=== PATIENT | male | born 1950 | race Caucasian/White ===

== ENCOUNTER 2016-12-02 12:06 | Emergency (ER) | payer MEDICARE, BC ==
[2016-12-02 12:20] VITALS: BP 136/82
--- NOTE | 2016-12-02 12:37 | EDM.PDOC ---
ED HPI GENERAL MEDICAL PROBLEM - General Chief Complaint: Abdominal Pain Stated Complaint: [id number] STOMACH TROUBLE FELL DOWN Time Seen by Provider: 12/02/16 12:25 Source of Information: Reports: Patient History Limitations: Reports: No Limitations - History of Present Illness INITIAL COMMENTS - FREE TEXT/NARRATIVE: This 66 yo male patient reports to the ED with a 2 day history of lower abdominal pain which got much worse after a fall today. The patient reports he was fishing on the [place] today and fell at about 1100. Since that time, the patient reports increased abdominal pain in his lower abdomen. The patient reports his pain initially started after a cough, but has not been getting any better. The patient reports he took 3 ibuprofen at about 1130 with little to no relief. The patient reports his pain is a 4/10 at this time, but is a 9/10 when he attempts to get up or move. 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 Lower Abdomen Pain Score (Numeric/FACES): 5 - Related Data Allergies Allergy/AdvReac Type Severity Reaction Status Date / Time No Known Allergies Allergy Verified 12/02/16 12:28 Home Meds: Home Meds Acetaminophen [Tylenol Extra Strength] 1,000 mg PO ASDIRECTED PRN 12/02/16 [ History] Alendronate Sodium [Fosamax] 70 mg PO WEEKLY 12/02/16 [History] Aspirin [Ecotrin] 81 mg PO DAILY 12/02/16 [History] Ca Carbonate/Vitamin D3/Vit K [Calcium + D Soft Chewable Tab] 1 each PO BID [History] Cholecalciferol (Vitamin D3) [Vitamin D3] 2 cap PO BID 12/02/16 [History] Docusate Sodium [Colace] 100 mg PO DAILY 12/02/16 [History] Enalapril [Vasotec] 10 mg PO DAILY 12/02/16 [History] Fluticasone/Salmeterol [Advair 250-50 Diskus] 2 puff IH BID 12/02/16 [History] Magnesium 250 mg PO DAILY 12/02/16 [History] Multivitamin/Iron/Folic Acid [Multi-Day Plus Iron Tablet] 1 each PO DAILY [History] NIFEdipine [Procardia XL] 30 mg PO DAILY 12/02/16 [History] Nitroglycerin [Nitrostat] 0.4 mg SL ASDIRECTED 12/02/16 [History] Pantoprazole Sodium [Protonix] 40 mg PO DAILY 12/02/16 [History] Potassium Chloride [Klor-Con 10] 10 meq PO DAILY 12/02/16 [History] Simvastatin [Zocor] 20 mg PO BEDTIME 12/02/16 [History] Past Medical History Cardiovascular History: Reports: Other (See Below) Other Cardiovascular History: "leaky valve" Respiratory History: Reports: COPD Gastrointestinal History: Reports: GERD Genitourinary History: Reports: None Musculoskeletal History: Reports: None Neurological History: Reports: None Psychiatric History: Reports: None Endocrine/Metabolic History: Reports: None Hematologic History: Reports: None Immunologic History: Reports: None Oncologic (Cancer) History: Reports: None Dermatologic History: Reports: None - Infectious Disease History Infectious Disease History: Reports: Chicken Pox - Past Surgical History Cardiovascular Surgical History: Reports: Pacer Social & Family History - Family History Family Medical History: Noncontributory - Tobacco Use Smoking Status *Q: Former Smoker Used Tobacco, but Quit: Yes Month Tobacco Last Used: 2015 - Caffeine Use Caffeine Use: Reports: Coffee - Recreational Drug Use Recreational Drug Use: No ED ROS GENERAL - Review of Systems Review Of Systems: ROS reveals no pertinent complaints other than HPI. ED EXAM, GI/ABD - Physical Exam Exam: See Below Exam Limited By: No Limitations General Appearance: Alert, WD/WN, Moderate Distress Eyes: Bilateral: Normal Appearance, EOMI Ears: Normal External Exam, Normal Canal, Hearing Grossly Normal, Normal TMs Nose: Normal Inspection, Normal Mucosa, No Blood Throat/Mouth: Normal Inspection, Normal Lips, Normal Teeth, Normal Gums, Normal Oropharynx, Normal Voice, No Airway Compromise Head: Atraumatic, Normocephalic Neck: Normal Inspection, Supple, Non-Tender, Full Range of Motion Respiratory/Chest: No Respiratory Distress, Lungs Clear, Normal Breath Sounds, No Accessory Muscle Use, Chest Non-Tender Cardiovascular: Normal Peripheral Pulses, Regular Rate, Rhythm, No Edema, No Gallop, No JVD, No Murmur, No Rub GI/Abdominal: Normal Bowel Sounds, Tenderness (lower abdomen), Guarding, Rebound , Psoas Sign (Male) Exam: Deferred Rectal (Males) Exam: Deferred Back Exam: Normal Inspection, Full Range of Motion, NT Extremities: Normal Inspection, Normal Range of Motion, Non-Tender, Normal Capillary Refill, No Pedal Edema Neurological: Alert, Oriented, CN II-XII Intact, Normal Cognition, Normal Gait, Normal Reflexes, No Motor/Sensory Deficits Psychiatric: Normal Affect, Normal Mood Skin Exam: Warm, Dry, Intact, Normal Color, No Rash Lymphatic: No Adenopathy Course - Vital Signs Last Recorded V/S: Last Vital Signs Temp 36.4 C 12/02/16 12:13 Pulse 68 12/02/16 12:13 Resp 20 12/02/16 12:13 BP 136/82 12/02/16 12:20 Pulse Ox 97 12/02/16 12:13 - Orders/Labs/Meds Orders: Active Orders 24 hr Category Date Time Status Abdomen Pelvis wo Cont [CT] Urgent Exams 12/02/16 13:14 Taken Labs: Laboratory Tests 12/02/16 12/02/16 12/02/16 Range/Units 12:35 12:38 12:38 WBC 11.6 H (5.0-10.0) 10^3/uL RBC 4.94 (4.6-6.2) 10^6/uL Hgb 14.7 (14.0-18.0) g/dL Hct 44.7 (40.0-54.0) % MCV 90.5 (80-100) fL MCH 29.8 (27.0-34.0) pg MCHC 32.9 L (33.0-35.0) g/dL Plt Count 298 (150-450) 10^3/uL Neut % (Auto) 58.9 (42.2-75.2) % Lymph % (Auto) 30.1 (20.5-50.1) % [place] % (Auto) 7.9 (2-8) % Eos % (Auto) 2.6 (1.0-3.0) % Baso % (Auto) 0.5 (0.0-1.0) % Sodium 134 L (135-145) mmol/L Potassium 4.5 (3.6-5.0) mmol/L Chloride 102 (101-111) mmol/L Carbon Dioxide 26.0 (21.0-31.0) mmol/L Anion Gap 10.5 BUN 19 H (7-18) mg/dL Creatinine 1.4 H (0.6-1.3) mg/dL Est Cr Clr Drug Dosing 42.29 mL/min Estimated GFR (MDRD) 50 BUN/Creatinine Ratio 13.57 Glucose 113 H (74-105) mg/dL Calcium 10.2 (8.4-10.2) mg/dl Total Bilirubin 0.4 (0.2-1.0) mg/dL AST 27 (10-42) IU/L ALT 28 (10-60) IU/L Alkaline Phosphatase 66 (42-121) IU/L Total Protein 7.5 (6.7-8.2) g/dl Albumin 4.2 (3.2-5.5) g/dl Globulin 3.3 Albumin/Globulin Ratio 1.27 Amylase 36 (28-100) U/L Lipase 21 L (22-51) U/L Urine Color Straw (YELLOW) Urine Appearance Clear (CLEAR) Urine pH 5.5 (5.0-9.0) Ur Specific [place] 1.020 (1.005-1.030) Urine Protein Negative (NEGATIVE) Urine Glucose (UA) Negative (NEGATIVE) Urine Ketones Negative (NEGATIVE) Urine Occult Blood Negative (NEGATIVE) Urine Nitrite Negative (NEGATIVE) Urine Bilirubin Small H (NEGATIVE) Urine Urobilinogen 0.2 (0.2-1.0) mg/dL Ur Leukocyte Esterase Small H (NEGATIVE) Urine RBC Not seen /HPF Urine WBC 5-10 H (0-5/HPF) /HPF Urine Bacteria Few (0-FEW/HPF) /HPF Urine Mucus Moderate H /LPF Departure - Departure Time of Disposition: 14:10 Disposition: Home, Self-Care 01 Condition: fair Clinical Impression: Abdominal wall strain Qualifiers: Encounter type: initial encounter Qualified Code(s): S39.011A - Strain of muscle, fascia and tendon of abdomen, initial encounter - Discharge Information Instructions: Muscle Strain, [id number] Forms: ED Department Discharge Care Plan Goals: The patient was advised of the examination, lab and CT results during the visit. The patient was encouraged to rest the area over the next 3-4 days. If the patient has any additional symptoms or concerns, the patient should follow- up with his primary care facility or return to the emergency department. - My Orders Last 24 Hours: My Active Orders 12/02/16 13:14 Abdomen Pelvis wo Cont [CT] Urgent - Assessment/Plan Last 24 Hours: My Active Orders 12/02/16 13:14 Abdomen Pelvis wo Cont [CT] Urgent
--- NOTE | 2016-12-02 14:34 | CT ---
CLINICAL HISTORY: 66-year-old afebrile 160 pound male smoker complaining of lower abdominal pain. SCAN TECHNIQUE: Volume acquisition of data from an emergency unenhanced CT scan of the abdomen and p alessio obtained with the patient lying supine on the Siemens multislice scanner [place], [place]. All data archived in the PACS system for storage, reformatting and study . INTERPRETATION: 1. Compression fracture T12 vertebral body, generalized osteopenia, chronic L5-S1 disc disease. 2. Multiple diverticula sigmoid colon without current signs of associated inflammation, i.e., no per icolonic inflammatory "dirty" peritoneal fat, abscess or signs of mechanical bowel obstruction. 3. Gallbladder, unenhanced liver, stomach, spleen, atrophic pancreas and adrenal glands anatomically correct and unremarkable. Normal reniform size and configuration without sign of discrete cortical mass or nephrolithiasis. Normal appendix RLQ. 4. Calcifications scattered along the course of normal caliber aortoiliac vessels. No aneurysm. 5. No pelvic or abdominal mass lesions and no signs of mesenteric or retroperitoneal lymphadenopathy . No ascites or free intraperitoneal air. Cardiac pacer leads. Lung bases clear. 6. No ventral wall hernias. No sign of abdominal wall or retroperitoneal hematoma. CONCLUSION: Diverticulosis sigmoid colon.
== END 2016-12-02 14:21 | disposition home or self-care (01) ==
LOC: DL.ED 12:06
DX: S39.011A Strain of muscle, fascia and tendon of abdomen, initial encounter (principal); J44.9 Chronic obstructive pulmonary disease, unspecified; K21.9 Gastro-esophageal reflux disease without esophagitis; Z79.82 Long term (current) use of aspirin; Z79.899 Other long term (current) drug therapy; Z87.891 Personal history of nicotine dependence; W19.XXXA Unspecified fall, initial encounter
CPT/HCPCS: 36415; 74176; 80053; 81001; 82150; 83690; 85025; 99282; 99284